=== PATIENT | male | born 1970 | race Caucasian/White ===

== ENCOUNTER 2020-10-05 20:37 | Emergency (ER) | payer BC ==
[~2020-10-05] VITALS: Ht 185.4 cm; Wt 93.9 kg
[2020-10-05] MEDS ORDERED: SINGULAIR 10 MG10 M1 PO (20:47)
[2020-10-05] MEDS ORDERED: SYMBICORT160 MCG/4. INH (20:47)
[2020-10-05] MEDS ORDERED: VENTOLIN HFA 1818 GM INH (20:47)
[2020-10-05] MEDS ORDERED: AUGMENTIN 875-1 EACH PO (21:21)
[2020-10-05] MEDS ORDERED: CENTANY30 GM TOP (21:22)
[2020-10-05 21:32] VITALS: BP 125/86
== END 2020-10-05 21:32 | disposition home or self-care (01) ==
LOC: M.ERS 20:37
DX: S00.83XA Contusion of other part of head, initial encounter (principal); S41.152A Open bite of left upper arm, initial encounter; J45.909 Unspecified asthma, uncomplicated; F17.210 Nicotine dependence, cigarettes, uncomplicated; Y04.1XXA Assault by human bite, initial encounter; Y93.89 Activity, other specified; Y92.89 Other specified places as the place of occurrence of the external cause; Y99.8 Other external cause status